=== PATIENT | female | born 1980 | race Caucasian/White ===

== ENCOUNTER 2018-01-09 09:49 | Outpatient (CLI) | payer OTHER ==
[2018-01-09] MEDS ORDERED: GADOPENTETATE DIMEGLUMINE 15 ML VIAL IV ONE (10:09)
== END 2018-01-09 19:53 | disposition home or self-care (01) ==
LOC: SMI 09:49
DX: D35.2 Benign neoplasm of pituitary gland (principal); R93.0 Abnormal findings on diagnostic imaging of skull and head, not elsewhere classified
CPT/HCPCS: 70553; A9579 ×2